=== PATIENT | male | born 1995 | race Caucasian/White ===

== ENCOUNTER 2021-01-06 16:49 | Outpatient (RCR) | payer BC, SELFPAY ==
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
--- NOTE | 2021-02-10 16:39 | PTOPEVAL ---
Thank you for referring En Hope to [facility].? The patient is scheduled to be seen for therapy? __3__x/week for 6 visits. Please review, sign, date and return this plan of care MONIKA. I agree with and certify that the following plan of care is medically necessary. Referring Physician Date Admitting Provider: Attending Provider: Mack Alvares, Referring Provider: *PT Outpatient Evaluation Start: 01/06/21 16:42 Freq: Status: Active Protocol: Document 02/10/21 15:25 RITO (Rec: 02/10/21 16:38 RITO [email or web address]) Therapy Assessment Status Assessment Status Assessment Status Progress Evaluation Information Problem Diagnosis second metatarsal fx, right hand and shoulder contusion Subjective Information Pt. reports that he is having Query Text:As Reported By Patient/ no complication with the right Family shoulder and hand. He states that he is out of his boot. He reports that he returned to the doctor and she was not happy with his walking mechanics. He reports that his goal for therapy is to be able to walk in a boot. Pain Assessment Timing of Pain Assessment Timing of Pain Assessment Pre-Treatment Self Report Self Report Pain Level 0 Pain Score Pain Score 0: Self Report Upper Extremity Range of Motion General Upper Extremity Range of Motion Gross Upper Extremity Range of Motion -right shoulder flexion 165 Comments degrees AROM Pt. demonstrates full fist on the right hand. 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 Lower Extremity Range of Motion General Lower Extremity Range of Motion Gross Lower Extremity Range of Motion -right ankle DF AROM 5 degrees Comments -right ankle PF AROM 50 degrees -right ankle inversion AROM 28 degrees -right ankle eversion AROM 12 degrees Gait Assessment Gait Assessment Additional Ambulation Comments Pt. ambulates with slightly decreased stance time on the right compared to the left. General Exercise General Exercises Exercise Description -heel raises x 30 Query Text:Record Sets, Reps, -toe raises x 30 Resistance, and Position -slantboard stretch x 2 minutes -slantboard soleus stretch x 2 minute
--- NOTE | 2021-02-19 16:43 | PTOPEVAL ---
Thank you for referring En Hope to [facility].? The patient is scheduled to be seen for therapy? ____x/week for ___ weeks. Please review, sign, date and return this plan of care MONIKA. I agree with and certify that the following plan of care is medically necessary. Referring Physician Date Admitting Provider: Attending Provider: Mack Alvares, MD Referring Provider: *PT Outpatient Evaluation Start: 01/06/21 16:42 Freq: Status: Active Protocol: Document 02/19/21 15:54 ACR (Rec: 02/19/21 16:41 ACR [id number]) Therapy Assessment Status Assessment Status Assessment Status Discharge Evaluation Information Problem Diagnosis second metatarsal fx Onset 12/12/20 Subjective Information Patient states that since Query Text:As Reported By Patient/ beginning therapy he has no Family difficulty performing daily activities. Patient states that he may slightly limp after a long day. He feels like today is a good last day. Pain Assessment Timing of Pain Assessment Timing of Pain Assessment Assessment Pain Scale Pain Scale Used Numeric (1 - 10) Self Report Pain Assessment Right Foot/Feet Reported Pain Level 0 Greatest Pain Intensity 0 Pain Score Pain Score 0: Self Report Interventions Used Interventions Used By Clinicians Activity or ADL's,Exercise Lower Extremity Range of Motion Ankle/Foot Range of Motion Right Ankle Dorsiflexion With Knee Extension 10 Range of Motion - Active Ankle Plantarflexion Range of Motion - 52 Active Query Text: Ankle Eversion Range of Motion - Active 14 Ankle Inversion Range of Motion - Active 25 Lower Extremity Muscle Strength Testing Ankle Strength Right Ankle Dorsiflexion Strength 5 Normal Ankle Plantarflexion Strength 5 Normal Ankle Eversion Strength 5 Normal Ankle Inversion Strength 5 Normal Gait Assessment Gait Assessment Additional Ambulation Comments Patient ambulates into the clinic with proper heel strike and weight distribution from the R to L. General Exercise General Exercises Exercise Description - heel raises x 30 Query Text:Record Sets, Reps, - toe raises x 30 Resistance, and Position - slantboard stretch x 2 minutes - slantboard soleus stretch x 2 minutes - SLS on airex x 1 minute x 2 B - single leg taps and
== END 2021-02-19 16:55 | disposition home or self-care (01) ==
LOC: CHSPT 16:49
PROVIDERS: Visit Provider Orthopaedic Surgery
DX: S60.221D Contusion of right hand, subsequent encounter (principal); S40.011D Contusion of right shoulder, subsequent encounter; Z48.89 Encounter for other specified surgical aftercare; S92.321B Displaced fracture of second metatarsal bone, right foot, initial encounter for open fracture
CPT/HCPCS: 97110; 97112; 97140; 97161; 97530